=== PATIENT | male | born 1955 | race Caucasian/White ===

== ENCOUNTER 2017-12-26 13:07 | Outpatient (CLI) | payer OTHER ==
--- NOTE | 2017-12-26 16:01 | MRI ---
CERVICAL SPINE MRI WITHOUT CONTRAST 12/26/17 COMPARISON: 08/07/07. HISTORY: Cervical radiculopathy. Bilateral arm pain and tingling. TECHNIQUE: Cervical spine MRI is performed without intravenous gadolinium administration. Multisequential, multi planar imaging is performed. FINDINGS: There is intrinsic T1 and T2 hyperintensity at T2 compatible with a T2 vertebral body hemangioma. The cervical vertebra have appropriate signal intensity. No fracture. No significant STIR hyperintens ity to suggest vertebral body edema or ligamentous injury. The visualized brain parenchyma, cervicome dullary junction, cervical cord, and the upper thoracic cord have a normal size and signal intensity. C2-C3: No significant disc osteophyte complex. No significant central canal stenosis. Moderate bilat eral foraminal narrowing due to degenerative changes of the uncovertebral joints. Note, the left unco vertebral hypertrophy is greater than the contralateral side. C3-C4: No significant disk-osteophyte complex. No significant central canal stenosis. Mild right a nd mild to moderate left foraminal narrowing. C4-C5: No significant disc osteophyte complex. No significant central canal stenosis. Moderate bilate ral foraminal narrowing. C5-C6: No significant disc osteophyte complex. No significant central canal stenosis. Foramina are pa tent. C6-C7: No significant disc osteophyte complex. No significant central canal stenosis. Mild to moderat e bilateral foraminal narrowing. C7-T1: No significant disc osteophyte complex. No significant central canal stenosis. Neural foramina are patent. T1-2 and T2-3: No significant central canal stenosis or foraminal narrowing. IMPRESSION: Degenerative changes of the cervical spine as above. POS: LAURA
== END 2017-12-26 13:08 | disposition home or self-care (01) ==
LOC: BICMRI 13:07
PROVIDERS: ATTEND Family Medicine
DX: M47.22 Other spondylosis with radiculopathy, cervical region (principal)
CPT/HCPCS: 72141

== ENCOUNTER 2018-02-26 12:34 | Outpatient (CLI) | payer OTHER ==
[2018-02-26] MEDS ORDERED: Iopamidol 370 76% 100 ML VIAL ONE (12:45)
--- NOTE | 2018-02-26 15:40 | CT ---
CT ABDOMEN AND PELVIS WITH AND WITHOUT CONTRAST: HISTORY: Prostate cancer. Prior esophageal surgery. COMPARISON: None. TECHNIQUE: Multiple contiguous axial images were obtained in a CT of the abdomen and pelvis with and without IV contrast. Post contrast images were obtained in nephrographic and excretory phases. Coronal reforma ts were performed. FINDINGS: There are hyperdensities in the gallbladder, which could represent gallstones. There is a well circu mscribed, nonenhancing cyst in the right lobe of the liver, measuring 4.7 cm in size. The kidneys, a drenal glands, spleen, and pancreas are unremarkable. No calcifications are seen in either kidney or ureter or in the urinary bladder. No filling defects are seen within the ureters or in the urinary bladder. The large and small bowel are unremarkable. No abdominal or pelvic lymphadenopathy is seen. Atherosclerotic calcifications ar e seen in the aorta. Degenerative changes are seen in the spine. The visualized inferior thorax and abdominal wall soft t issues are unremarkable. IMPRESSION: 1. No evidence of acute intraabdominal/pelvic abnormality. 2. Possible cholelithiasis. 3. Right hepatic cyst. POS: LAURA
== END 2018-02-26 12:35 | disposition home or self-care (01) ==
LOC: BICCT 12:34
PROVIDERS: ATTEND Urology
DX: C61 Malignant neoplasm of prostate (principal); R35.0 Frequency of micturition; Z87.438 Personal history of other diseases of male genital organs; K76.89 Other specified diseases of liver
CPT/HCPCS: 74178; 82565

== ENCOUNTER 2018-03-28 14:32 | Outpatient (CLI) | payer OTHER ==
--- NOTE | 2018-03-29 16:15 | MRI ---
MRI PELVIS WITH AND WITHOUT CONTRAST PROSTATE PROTOCOL: Date: 03/28/18 HISTORY: Newly diagnosed prostate cancer. COMPARISON: None. TECHNIQUE: Multiplanar, multisequence MRI of the pelvis performed prior to and after the intravenous administrat ion of contrast. The exam was reviewed at a 3D independent workstation. FINDINGS: Prostate: The prostate measures 4.8 x 3.9 x 4.6 cm, for a volume of 45 mL. Peripheral Zone: Right peripheral zone, mid gland, 7-8 o'clock, is 1.2 x 0.8 x 0.9 cm, T2 markedly hypointense mass, w ith focal capsular bulge and concern for extension across the capsule and involvement of the right ne urovascular bundle. There is focal marked hypointensity on the ADC with marked hyperintensity on the diffusion-weighted imaging sequence. Transitional Zone: There is heterogeneous signal intensity with obscure margins. Small circumscribed hypointense nodules . Seminal Vesicles: Intact. Rectoprostatic Angle: Intact. Urinary Bladder: Intact. Lymph Nodes: No adenopathy. No obturator adenopathy. Bones: On the large field of view T1-weighted imaging sequence, there are no abnormal areas of marrow signal loss to suggest osseous metastatic disease. No free fluid in the pelvis. IMPRESSION: 1. PI-RADS 5: High (clinically significant prostate cancer is highly likely to be present). This in volves the right mid gland at 7-8 o'clock with a large capsular abutment with focal perforation throu gh the capsule and involvement of the right neurovascular bundle. No evidence for local or regional n odal involvement or osseous metastatic disease. 2. Prostatic volume of approximately 45 mL. POS: TPC
== END 2018-03-28 14:33 | disposition home or self-care (01) ==
LOC: TBSIIMAG 14:32
PROVIDERS: ATTEND Urology
DX: C61 Malignant neoplasm of prostate (principal); Z87.438 Personal history of other diseases of male genital organs
CPT/HCPCS: 72197

== ENCOUNTER 2019-03-28 13:27 | Outpatient (CLI) | payer OTHER ==
[2019-03-28 15:19] LABS: #Eosinphils 0.1 thou/uL (0.0-0.7); #Lymphocytes 1.5 thou/uL (1.20-3.40); #Monocytes 0.5 thou/uL (0.11-0.59); %Basophils 0.6 % (0.0-1.0); %Eosinophils 1.2 % (0.0-10.0); %Lymphocytes 21.4 % (21.0-51.0); %Monocytes 6.8 % (0.0-10.0); Hemoglobin 15.7 g/dL (14.0-18.0); Mean Corpuscular HGB CONC 33.6 g/dL (32.0-36.0); Mean Corpuscular Hemoglobin 30.6 pg (27.0-31.0); Mean Platelet Volume 7.7 fL (7.4-10.4); Platelet Count 195 thou/uL (130-400); RBC Distribution Width 11.8 % (11.5-14.5); Red Blood Cell (RBC) Count 5.14 mill/uL (4.70-6.10); White Blood Cell (WBC) Count 7.1 thou/uL (4.8-10.8)
== END 2019-03-28 13:28 | disposition home or self-care (01) ==
LOC: LABBT 13:27
PROVIDERS: ATTEND Orthopaedic Surgery Hand Surgery
DX: Z01.818 Encounter for other preprocedural examination (principal); S62.633D Displaced fracture of distal phalanx of left middle finger, subsequent encounter for fracture with routine healing
CPT/HCPCS: 85025; 93005; 93010

== ENCOUNTER 2019-03-29 10:56 | Day surgery (SDC) | payer OTHER ==
[2019-03-28 14:04] VITALS: BMI 28.0
[2019-03-29] MEDS ORDERED: Ondansetron PF 4 MG/2 ML Vial ONE (11:09)
[2019-03-29] MEDS ORDERED: diphenhydrAMINE 50 MG/ML VIAL ONE (11:09)
[2019-03-29] MEDS ORDERED: PROPOFOL 200 MG/20 ML VIAL ONE (11:09)
[2019-03-29] MEDS ORDERED: Dexamethasone 20 MG/5 ML VIAL ONE (11:09)
[2019-03-29] MEDS ORDERED: Lidocaine 1% PF 5 ML VIAL ONE (11:09)
[2019-03-29] MEDS ORDERED: Bacitracin Zinc Ointment 30 gm TUBE ONE (15:31)
[2019-03-29] MEDS ORDERED: Sodium Chloride 0.9% 10 ML ONE (15:31)
[2019-03-29] MEDS ORDERED: Bupivacaine PF 0.5% 30 ML VIAL ONE (15:31)
[2019-03-29] MEDS ORDERED: Fentanyl 100 MCG/2 ML VIAL ONE (15:34)
[2019-03-29] MEDS ORDERED: Ketorolac Tromethamine 30 MG/ML VIAL ONE (18:48)
[2019-03-29] MEDS ORDERED: HYDROcodone/Acetaminophen 5/325 mg Tablet ONE (20:04)
--- NOTE | 2019-03-30 13:31 | RAD ---
Right middle finger intraoperative fluoroscopy 2 views HISTORY: Fracture. FINDINGS: Intraoperative fluoroscopy was provided for internal fixation as performed by Dr. Gifford. Spot fluoroscopic images show minimally distracted comminuted fracture of the distal phalanx as detailed on recent dedicated finger radiograph. Increased density at the fracture plane on the final images is consistent with implanted material.
--- NOTE | 2019-04-01 10:49 | OP ---
DATE OF PROCEDURE: 03/29/2019 PREOPERATIVE DIAGNOSIS: ANESTHESIA: General LMA technique augmented by metacarpophalangeal joint block for a total of 20 mL of 0.5% Marcaine. TOURNIQUET TIME: 51 minutes. ESTIMATED BLOOD LOSS: 20 mL. INTRAOPERATIVE FINDINGS: Gross purulence from the dorsal wound inspected subcutaneously with positive intraoperative Gram stain for gram-positive cocci for between the bone fragment deep in the wound with multiple white blood cells. POSTOPERATIVE DIAGNOSIS: Deep wound possible bone infection at the distal phalanx open fracture of left middle finger proximal third. PROCEDURES PERFORMED: 1. Debridement of bone and material associated with open fracture. 2. Application of antibiotic beads . 3. C-arm supervision for nail removal. SPECIMEN: Culture plus Gram stain. INDICATION: The patient is now 3-1/2 weeks after open fracture treated with emergency room level irrigation (soaking) and closure. He was referred to us because of a bone loss after a saw injury and numbness and tingling. He had a possible digital nerve injury as well. POSTOPERATIVE FINDINGS: 1. infection. 2. digital nerve lacerated without gross infection. DESCRIPTION OF PROCEDURE: After successful general endotracheal anesthesia, limb was prepped and draped. The patient had the limb exsanguinated, tourniquet inflated to 250 mmHg pressure. We then extended his dorsal incision to the radial dorsal side, preserving the entire radial neurovascular bundle, which was definitely intact by exam and clinical findings. We then dissected down and found his laceration was just proximal to the germinal matrix base, which had the terminal extensor germinal matrix, but extensor remained intact to the 3 mm rim of bone. We then removed the sutures and in the process of removing the sutures, dissecting deep, there were 2 droplets of gross purulence that escaped from deep in the wound. For this reason, we immediately debrided the wound and debrided the bone. We used a curette, [place] blade, tenotomy scissors, Crile, and a small rongeur. We irrigated with 2 L of normal saline Pulsavac with a bulb syringe pressure with antibiotics inside and we used excisional technique. Before we did all this, however, we stained immediately a culture with Gram stain and would wait for the culture Gram-stain before we put bone graft in this area as previously planned. Because it was infected there, bone grafts were not placed in it. During this time, we kept tourniquet intact until we did a neuroplasty of the digital nerve for exploration and found that the 2 most ulnar rami, not the central rami, were lacerated and had a hematoma around it. We debrided this and then deflated the tourniquet. After tourniquet was deflated, we waited until we have confirmation from the lab that this patient had gram-positive cocci in chains and multiple white blood cell of the Gram-stain consistent with infection. Thus, we finished another irrigation liter. We mixed tobramycin powder in the antibiotic PMMA cement mixture to fit the size of this and thus placed antibiotic local delivery truck driver solid into the defect instead of bone graft because of the probable infection. We then obtained hemostasis, we placed a 4-0 chromic suture to connect the germinal matrix to the extensor mechanism without undue tension. We did not put a pin across the fracture site. We closed the palmar ulnar wound for exploration as well as the dorsal wound that we had done. Bulky dressing was applied along with bacitracin, Adaptic, and a splint, 4 inch Orthoglass. The patient left the operating room without evidence of anesthetic or operative complication. Job ID: [id number]
== END 2019-03-29 20:25 | disposition home or self-care (01) ==
LOC: SDC 10:56
PROVIDERS: ATTEND Orthopaedic Surgery Hand Surgery
PROC: 01N30ZZ Release Brachial Plexus, Open Approach (ICD-10-PCS; principal; 2019-03-29)
PROC: 0PBV0ZZ Excision of Left Finger Phalanx, Open Approach (ICD-10-PCS; principal; 2019-03-29)
DX: S62.633B Displaced fracture of distal phalanx of left middle finger, initial encounter for open fracture (principal); S64.493A Injury of digital nerve of left middle finger, initial encounter; K21.9 Gastro-esophageal reflux disease without esophagitis; Z79.899 Other long term (current) drug therapy
CPT/HCPCS: 76000; 87070; 87077; 87186; 87205; C1713; J0690; J1100; J1200; J1885; J2001; J2405; J2704; J3010; J3370; J3490; S0020

== ENCOUNTER 2019-04-30 06:30 | Day surgery (SDC) | payer OTHER ==
[2019-04-29 09:21] VITALS: BMI 27.3
[2019-04-30 07:53] LABS: #Basophils 0.1 thou/uL (0.0-0.2); #Eosinphils 0.1 thou/uL (0.0-0.7); #Lymphocytes 1.2 thou/uL (1.20-3.40); #Monocytes 0.5 thou/uL (0.11-0.59); #Neutrophils 2.1 thou/uL (1.40-6.50); %Basophils 1.6 % (0.0-1.0); %Eosinophils 2.2 % (0.0-10.0); %Lymphocytes 31.4 % (21.0-51.0); %Monocytes 11.8 % (0.0-10.0); %Neutrophils 52.9 % (42.0-75.0); Hemoglobin 14.6 g/dL (14.0-18.0); Mean Corpuscular HGB CONC 32.3 g/dL (32.0-36.0); Mean Corpuscular Hemoglobin 29.6 pg (27.0-31.0); Mean Corpuscular Volume 91.8 fL (78.0-98.0); Mean Platelet Volume 7.3 fL (7.4-10.4); Platelet Count 169 thou/uL (130-400); RBC Distribution Width 12.2 % (11.5-14.5); Red Blood Cell (RBC) Count 4.93 mill/uL (4.70-6.10); White Blood Cell (WBC) Count 3.9 thou/uL (4.8-10.8)
[2019-04-30] MEDS ORDERED: Bupivacaine PF 0.5% 30 ML VIAL ONE (08:44)
[2019-04-30] MEDS ORDERED: Bacitracin Zinc Ointment 30 gm TUBE ONE (08:44)
[2019-04-30] MEDS ORDERED: Fentanyl 100 MCG/2 ML VIAL ONE ×2 (08:46→13:11)
[2019-04-30] MEDS ORDERED: Ketorolac Tromethamine 30 MG/ML VIAL ONE (13:01)
[2019-04-30] MEDS ORDERED: PROPOFOL 200 MG/20 ML VIAL ONE (13:24)
[2019-04-30] MEDS ORDERED: Succinylcholine Chloride 20 MG/ML 10 ml SYRINGE FS ONE (13:24)
[2019-04-30] MEDS ORDERED: Lidocaine 1% PF 5 ML VIAL ONE (13:24)
[2019-04-30] MEDS ORDERED: Dexamethasone 20 MG/5 ML VIAL ONE (13:24)
[2019-04-30] MEDS ORDERED: Ondansetron PF 4 MG/2 ML Vial ONE (13:24)
--- NOTE | 2019-04-30 13:44 | RAD ---
CHEST 1 VIEW: Date: 04/30/2019 HISTORY: Aspiration in the operating room. FINDINGS: Minimal patchy increased markings are noted bilaterally, including left perihilar and left lower lobe region, but no evidence for confluent pneumonia or significant pleural effusion. Heart size is elif l. The right lung appears clear. IMPRESSION: Minimal patchy parenchymal changes in the left perihilar and left lower lobe, nonspecific. If there r emains clinical concern for aspiration pneumonia, follow-up PA and lateral chest in the short-term mi ght be considered. POS: [facility]
--- NOTE | 2019-05-01 10:36 | OP ---
DATE OF PROCEDURE: 04/30/2019 PREOPERATIVE DIAGNOSES: 1. Left middle finger 4 x 6 mm bone defect, now filled by antibiotic impregnated beads and just finished treatment of IV antibiotics for infection in the bone defect, which could be an osteo. He is responding well. 2. Fracture, distal phalanx, crush, without much bone loss, junction from the middle of the bone to the proximal 2 mm. PROCEDURES PERFORMED: 1. C-arm supervision by surgeon to remove antibiotic beads. 2. Microscopic repair, digital nerve, radial and ulnar. 3. Bone graft, harvested from the distal radius just proximal to Barry's tubercle, a 6 x 6 wedge-shaped piece and then finally open reduction and internal fixation, bone grafting of distal phalanx using K-wires placed in retrograde. SPECIMEN REMOVED: Antibiotic beads. TOURNIQUET TIME: 120 minutes. ESTIMATED BLOOD LOSS: 20 mL. FINDINGS: No gross infection. Extensor mechanism was intact except for the defect made to remove the wire and place the bone inside. DESCRIPTION OF PROCEDURE: The patient had the limb prepped and draped and we identified the right side as the proximal side and so we pursued this as it matched the consent, and history and physical and the markings made by surgeon preop. We then exsanguinated the limb, inflated tourniquet to 250 mmHg pressure after removing the sutures they were already in place in the distal finger, and carried this through skin and subcutaneous tissue to identified the extensor mechanism. We noticed a small defect and systematically extending this longitudinally, 5 mm distal and almost to the nailbed matrix and 5 mm proximal. Then at this time, we gently dissected extensor mechanism, removed the antibiotic bead. The antibiotic bead measured approximately 4 x 4 mm and then we measured the cavity, it was 5 x 6 mm, so we went to harvest a piece of bone tricortical, there was slightly beginning of hole and we had to revise it. Once it was fitting well, we then provisionally fixed it with K-wires x3, one in each 3rd of the construct and deflated the tourniquet. We obtained hemostasis, and then we were able to prepare for closure. While we waited for the C-arm to arrive, we had performed a palmar approach and identified the 2 rami of the digital nerves that were cut. These were so we found the opposite ends, and used 10-0 Nurolon under magnification, placed 4 sutures in one and 3 in the other. Then, we irrigated gently, obtained hemostasis, closed the wound with interrupted 4-0 nylon. There was no evidence of circulatory loss and before we closed the extensor mechanism on the dorsal side, we made sure the bone was levelled with the proximal end which he had to match as well as the distal end, which he had to match, the K-wires all three were in appropriate position. The first two crossed and then the second one came in at approximately 10-degree angle and did not interfere with other digits and gave excellent support. We put the joint through cycles x10 with myself and then my care team assistant x10 with no gross Job ID: [id number]
--- NOTE | 2019-05-01 11:28 | RAD ---
INTRAPROCEDURE FLUOROSCOPY: HISTORY: Fixation. FINDINGS: Seven fluoroscopic images demonstrate placement of multiple K-wires along the distal aspect of the 4t h digit. Erosive and obstructive changes with associated lucency are redemonstrated. EXPOSURE: 0.14 mGy. 35 seconds. IMPRESSION: Intraoperative fluoroscopy as above. POS: LAURA
== END 2019-04-30 15:35 | disposition home or self-care (01) ==
LOC: SDC 06:30
PROVIDERS: ATTEND Orthopaedic Surgery Hand Surgery
PROC: 0PSV04Z Reposition Left Finger Phalanx with Internal Fixation Device, Open Approach (ICD-10-PCS; principal; 2019-04-30)
PROC: 01Q40ZZ Repair Ulnar Nerve, Open Approach (ICD-10-PCS; principal; 2019-04-30)
PROC: 0PBJ0ZZ Excision of Left Radius, Open Approach (ICD-10-PCS; principal; 2019-04-30)
PROC: 01Q60ZZ Repair Radial Nerve, Open Approach (ICD-10-PCS; principal; 2019-04-30)
PROC: 0PUV07Z Supplement Left Finger Phalanx with Autologous Tissue Substitute, Open Approach (ICD-10-PCS; principal; 2019-04-30)
DX: S62.663A Nondisplaced fracture of distal phalanx of left middle finger, initial encounter for closed fracture (principal); S64.493A Injury of digital nerve of left middle finger, initial encounter; K21.9 Gastro-esophageal reflux disease without esophagitis; Z22.322 Carrier or suspected carrier of Methicillin resistant Staphylococcus aureus; Z79.899 Other long term (current) drug therapy
CPT/HCPCS: 71045; 76000; 85025; 85652; 87070; 87205; J0690; J1100; J1885; J2001; J2405; J2704; J3010; J3490; S0020

== ENCOUNTER 2020-09-11 10:20 | Outpatient (CLI) | payer MEDICARE, OTHER | END 2020-09-11 10:21 | disposition home or self-care (01) | LOC: BICULT 10:20 | PROVIDERS: ATTEND Family Medicine | DX: R10.11 Right upper quadrant pain (principal); K76.89 Other specified diseases of liver | CPT/HCPCS: 76705 ==

== ENCOUNTER 2020-12-14 08:00 | Outpatient (CLI) | payer MEDICARE, OTHER ==
[2020-12-14] MEDS ORDERED: Iopamidol 370 76% 100 ML VIAL ONE (11:05)
== END 2020-12-14 08:01 | disposition home or self-care (01) ==
LOC: CT 08:00
PROVIDERS: ATTEND Internal Medicine Gastroenterology
DX: R10.11 Right upper quadrant pain (principal); K76.89 Other specified diseases of liver
CPT/HCPCS: 74160; 82565; Q9967

== ENCOUNTER 2022-02-25 14:34 | Outpatient (CLI) | payer MEDICARE, OTHER | END 2022-02-25 14:35 | disposition home or self-care (01) | LOC: BICRAD 14:34 | PROVIDERS: ATTEND Family Medicine | DX: M54.6 Pain in thoracic spine (principal) | CPT/HCPCS: 36415; 71046; 80053; 80061; 81001; 84153; 84443; 85025 ==

== ENCOUNTER 2023-12-29 15:35 | Emergency (ER) | payer MEDICARE, OTHER ==
[~2023-12-29 15:35] MED LIST: Iopamidol-370 76% 500 ML MDV (1 ML CHARGE) ONE
[2023-12-29 17:36] LABS: #Basophils 0.05 10x3/uL (0.0-0.2); %Basophils 0.7 % (0.0-1.0); %Eosinophils 2.4 % (0.0-10.0); %Lymphocytes 30.7 % (21.0-51.0); %Monocytes 9.2 % (0.0-10.0); %Neutrophils 56.6 % (42.0-75.0); Hematocrit 49.8 % (42.0-52.0); Hemoglobin 16.8 g/dL (14.0-18.0); Mean Corpuscular HGB CONC 33.7 g/dL (32.0-36.0); Mean Corpuscular Hemoglobin 29.6 pg (27.0-31.0); Mean Corpuscular Volume 87.7 fL (78.0-98.0); Mean Platelet Volume 9.4 fL (7.4-10.4); Platelet Count 170 10x3/uL (130-400); RBC Distribution Width 13.2 % (11.5-14.5); Red Blood Cell (RBC) Count 5.68 mill/uL (4.70-6.10)
[2023-12-29 17:55] LABS: ALT (SGPT) 24 U/L (8-55); AST (SGOT) 13 U/L (5-34); Albumin 3.9 g/dL (3.4-4.8); Alkaline Phosphatase 72 U/L (40-110); Anion Gap 12 mmol/L (10-20); BUN (Urea Nitrogen) 17 mg/dL (8.4-25.7); Bilirubin, Total 1.2 mg/dL (0.2-1.2); Calc. Creatinine Clearance 0 mL/min (70-130); Calcium 9.5 mg/dL (7.8-10.44); Carbon Dioxide 23 mmol/L (23-31); Chloride 106 mmol/L (98-107); Estimated GFR 69; Globulin 3.3 g/dL (2.4-3.5); Glucose 93 mg/dL (80-115); Lipase 22 U/L (8-78); Potassium 3.8 mmol/L (3.5-5.1); Protein, Total 7.2 g/dL (5.8-8.1); Sodium 137 mmol/L (136-145)
[2023-12-29 17:59] LABS: Troponin I Less than 0.010 ng/mL (< 0.028)
[2023-12-29 21:02] LABS: Bacteria/HPF None Seen HPF (None Seen); Bilirubin Negative (Negative); Blood, Urine Negative (Negative); CAUTI Indications for Culture Dysuria,urgency,freq; Clarity Clear (Clear); Glucose, Urine (Dipstick) Normal (Negative); Ketone, Urine Negative (Negative); Leukocyte Negative Leu/uL (Negative); Nitrite Negative (Negative); Protein, Urine (Dipstick) Negative (Neg-Trace); RBC/HPF 0-3 HPF (0-3); Specific Gravity, Urine 1.022 (1.002-1.036); Squamous Epithelial 0-3 HPF (0-3); Urobilinogen Normal mg/dL (Less than 2); WBC/HPF 0-3 HPF (0-3)
[2023-12-29 21:04] LABS: Urine Culture Reflex No No
== END 2023-12-29 21:58 | disposition home or self-care (01) ==
LOC: ERS 15:35
DX: R05.9 Cough, unspecified (principal); R53.83 Other fatigue
CPT/HCPCS: 71275; 80053; 81001; 83690; 83880; 84484; 85025; 93005

== ENCOUNTER 2024-12-20 11:34 | Observation (INO) | payer MEDICARE, OTHER ==
[2024-12-20] MEDS ORDERED: Mag-Al 1200 mg/1200 mg/30 ML UDCUP ONE (11:57)
[2024-12-20] MEDS ORDERED: Lidocaine Viscous Sol 2% 15 ml UD Cup ONE (11:57)
[2024-12-20 13:41] LABS: #Basophils 0.08 10x3/uL (0.0-0.2); #Eosinophils 0.12 10x3/uL (0.0-0.7); #Monocytes 0.46 10x3/uL (0.11-0.59); #Neutrophils 2.86 10x3/uL (1.40-6.50); %Basophils 1.6 % (0.0-1.0); %Eosinophils 2.5 % (0.0-10.0); %Lymphocytes 27.5 % (21.0-51.0); %Monocytes 9.4 % (0.0-10.0); %Neutrophils 58.8 % (42.0-75.0); Hematocrit 47.4 % (42.0-52.0); Hemoglobin 15.4 g/dL (14.0-18.0); Mean Corpuscular Hemoglobin 29.2 pg (27.0-31.0); Mean Corpuscular Volume 89.8 fL (78.0-98.0); Platelet Count 172 10x3/uL (130-400); Red Blood Cell (RBC) Count 5.28 mill/uL (4.70-6.10); White Blood Cell (WBC) Count 4.87 10x3/uL (4.8-10.8)
[2024-12-20 13:53] LABS: ALT (SGPT) 14 U/L (Less than 45); AST (SGOT) 19 U/L (11-34); Albumin 3.9 g/dL (3.1-4.5); Alkaline Phosphatase 69 U/L (40-110); Anion Gap 16 mmol/L (10-20); BUN (Urea Nitrogen) 15 mg/dL (8.4-25.7); Bilirubin, Total 1.1 mg/dL (0.3-1.2); Calc. Creatinine Clearance 0 mL/min (70-130); Calcium 9.2 mg/dL (7.8-10.44); Carbon Dioxide 24 mmol/L (23-31); Chloride 103 mmol/L (98-107); Globulin 2.8 g/dL (2.4-3.5); Glucose 133 mg/dL (80-115); Potassium 4.2 mmol/L (3.5-5.1); Sodium 139 mmol/L (136-145)
[2024-12-20] MEDS ORDERED: Aspirin Chewable 81 MG TAB ONE (14:51)
[2024-12-20] MEDS ORDERED: Ondansetron PF 4 MG/2 ML Vial IVP PRN (14:57)
[2024-12-20] MEDS ORDERED: Calcium Carbonate 500 MG ChewTAB PO PRN (14:57)
[2024-12-20] MEDS ORDERED: Acetaminophen 325 MG TAB PO PRN (14:57)
[2024-12-20 17:28] VITALS: BMI 28.1
[2024-12-21 05:39] LABS: Anion Gap 13 mmol/L (10-20); BUN (Urea Nitrogen) 15 mg/dL (8.4-25.7); Calc. Creatinine Clearance 77 mL/min (70-130); Calcium 9.1 mg/dL (7.8-10.44); Carbon Dioxide 23 mmol/L (23-31); Cardiac Risk 2.9 (Less than 4.5); Chloride 106 mmol/L (98-107); Cholesterol 141 mg/dl (< 200 Desired); Glucose 101 mg/dL (80-115); HDL Cholesterol 48 mg/dL (>60 Neg Risk); LDL Cholesterol, Calculated 75 mg/dL; Magnesium 2.0 mg/dL (1.6-2.6); Potassium 4.0 mmol/L (3.5-5.1); Sodium 138 mmol/L (136-145); Triglycerides 88 mg/dL (Less than 150)
[2024-12-21] MEDS: Aspirin Chewable 81 MG TAB PO SCH (10:09)
[2024-12-21 14:23] VITALS: BP 124/78; TEMP 98.1
[2024-12-21] MEDS ORDERED: Rosuvastatin 5 MG TAB PO SCH (21:00)
[2024-12-22] MEDS ORDERED: Transdermal Patch Removal TOP SCH (01:30)
== END 2024-12-21 14:25 | disposition home or self-care (01) ==
LOC: ERS 11:34 → SUATTDRO 11:34 → OBS 15:00
PROVIDERS: ADMIT Internal Medicine; ATTEND Family Medicine
DX: R07.89 Other chest pain (principal); R73.9 Hyperglycemia, unspecified; M54.9 Dorsalgia, unspecified; E78.5 Hyperlipidemia, unspecified; K21.9 Gastro-esophageal reflux disease without esophagitis; Z91.011 Allergy to milk products; Z79.899 Other long term (current) drug therapy
CPT/HCPCS: 71045; 78452; 80048; 80053; 80061; 83036; 83735; 83880; 84484 ×2; 85025; 85379; 93005; 93017; 99285; A9502; G0378 ×3; J2785 ×2; 36415